=== PATIENT | male | born 1940 | race Caucasian/White ===

== ENCOUNTER 2017-10-13 12:34 | Inpatient (IN) ==
[~2017-10-13 12:34] MED LIST: ETOMIDATE 20 MG/10 ML VIAL IV ONE; PHENYLEPHRINE 1 MG/10 ML SYRINGE IV ONE; PROPOFOL 200 MG/20 ML VIAL IV ONE
[2017-10-13] MEDS ORDERED: DILTIAZEM 50 MG/10 ML VIAL IV STA ×2 (12:53→17:43)
[2017-10-13] MEDS ORDERED: DILTIAZEM 100 MG VIAL.ADD IV ONE (12:57)
[2017-10-13] MEDS ORDERED: DILTIAZEM 50 MG/10 ML VIAL IV ONE ×2 (12:58→17:41)
[2017-10-13] MEDS ORDERED: DILTIAZEM INJ 100 MG in SODIUM CHLORIDE 0.9% 100 ML IV SCH (13:00)
[2017-10-13] MEDS ORDERED: SODIUM CHLORIDE 0.9% 100 ML IV ONE (13:10)
[2017-10-13 14:04] LABS: INR 1.1; PT Patient Result 11.4 SECS; Partial Thromboplastin Time 26.1 SECS (0-40)
[2017-10-13 14:23] LABS: Alanine Aminotransferase 18 U/L (16-61); Albumin 3.6 G/DL (3.4-5.0); Alkaline Phosphatase 61 U/L (45-117); Aspartate Amino Transferase 18 U/L (0-37); Blood Urea Nitrogen 11 MG/DL (7-18); Calcium 8.8 MG/DL (8.5-10.1); Glucose 93 MG/DL (74-106); Osmolality,Calculated 273.7 MOS/KG (273-304); Sodium 138 MMOL/L (136-145); Total Protein 6.7 G/DL (6.4-8.3); Troponin I Only < 0.015 NG/ML (0.00-0.045)
[2017-10-13 14:53] LABS: Basophils # 0.1 10*3/uL (0.0-0.2); Basophils % 1.1 % (0.0-0.8); Eosinophils # 0.1 10*3/uL (0.0-0.87); Eosinophils % 1.7 % (0.00-10.9); Hematocrit 36.9 VOL% (42.0-52.0); Hemoglobin 12.8 GM/DL (14.0-18.0); Immature Granulocytes % 0.2 %; Immature Granulocytes Absolute 0.01 #; Lymphocytes # 1.2 10*3/uL (1.4-4.0); Lymphocytes % 23.3 % (21.2-54.2); Mean Corpuscular HGB Conc 34.7 GM/DL (32-36); Mean Corpuscular Hemoglobin 33 PG (27-34); Mean Corpuscular Volume 94.4 FL (87-102); Mean Platelet Volume 13.8 FL (9.6-12.0); Monocytes # 0.6 10*3/uL (0.11-0.8); Monocytes % 10.5 % (1.7-12.7); Neutrophils # 3.3 10*3/uL (1.4-7.4); Neutrophils % 63.2 % (38.7-73.9); Red Blood Count 3.91 MC/CUMM (3.8-5.5); Red Cell Distribution Width 13.3 % (9.3-17.3); White Blood Count 5.2 T/CUMM (4-12)
[2017-10-13 14:59] LABS: Platelet Count 30 T/CUMM (130-400)
[2017-10-13 15:07] LABS: Macrocytosis 2+
[2017-10-13 15:08] LABS: Platelet Estimate Decreased
[2017-10-13] MEDS ORDERED: traZODone 50 MG TABLET PO PRN (15:19)
[2017-10-13] MEDS ORDERED: ACETAMINOPHEN 325 MG TABLET PO PRN (15:19)
[2017-10-13] MEDS ORDERED: ONDANSETRON 4 MG/2 ML VIAL IV PRN (15:19)
[2017-10-13] MEDS ORDERED: ACETAMINOPHEN 325 MG TABLET ONE (16:25)
[2017-10-13] MEDS: EZETIMIBE 10 MG TABLET PO SCH (21:58)
[2017-10-13] MEDS: TAMSULOSIN 0.4 MG CAPSULE PO SCH (21:59)
[2017-10-13] MEDS: DILTIAZEM INJ 100 MG in SODIUM CHLORIDE 0.9% 100 ML IV SCH (22:11)
[2017-10-14] MEDS: DILTIAZEM INJ 100 MG in SODIUM CHLORIDE 0.9% 100 ML IV SCH ×3 (06:35→15:34)
[2017-10-14] MEDS: LEVOTHYROXINE 75 MCG TABLET PO SCH (06:35)
[2017-10-14 08:30] LABS: Basophils # 0.1 10*3/uL (0.0-0.2); Basophils % 0.9 % (0.0-0.8); Eosinophils # 0.1 10*3/uL (0.0-0.87); Eosinophils % 1.3 % (0.00-10.9); Hematocrit 35.2 VOL% (42.0-52.0); Hemoglobin 12.4 GM/DL (14.0-18.0); Immature Granulocytes % 0.4 %; Immature Granulocytes Absolute 0.02 #; Lymphocytes # 1.3 10*3/uL (1.4-4.0); Lymphocytes % 24.8 % (21.2-54.2); Mean Corpuscular HGB Conc 35.2 GM/DL (32-36); Mean Corpuscular Hemoglobin 32 PG (27-34); Mean Corpuscular Volume 91.9 FL (87-102); Mean Platelet Volume 10.1 FL (9.6-12.0); Monocytes # 0.6 10*3/uL (0.11-0.8); Monocytes % 11.5 % (1.7-12.7); Neutrophils # 3.3 10*3/uL (1.4-7.4); Neutrophils % 61.1 % (38.7-73.9); Red Blood Count 3.83 MC/CUMM (3.8-5.5); Red Cell Distribution Width 13.2 % (9.3-17.3); White Blood Count 5.4 T/CUMM (4-12)
[2017-10-14 08:32] LABS: Platelet Count 85 T/CUMM (130-400)
[2017-10-14] MEDS ORDERED: METOPROLOL SUCCINATE XL 25 MG TABLET PO SCH (09:00)
[2017-10-14] MEDS ORDERED: DILTIAZEM CD 240 MG CAPSULE PO SCH (14:00)
[2017-10-14] MEDS: CITALOPRAM 20 MG TABLET PO SCH (14:39)
[2017-10-14] MEDS: PRAVASTATIN 40 MG TABLET PO SCH (14:40)
[2017-10-14] MEDS: RIVAROXABAN 20 MG TABLET PO SCH (16:47)
[2017-10-14] MEDS: EZETIMIBE 10 MG TABLET PO SCH (21:51)
[2017-10-14] MEDS: TAMSULOSIN 0.4 MG CAPSULE PO SCH (21:52)
[2017-10-14] MEDS: ZALEPLON 5 MG CAPSULE PO PRN (21:52)
[2017-10-14] MEDS: ASPIRIN EC 81 MG TABLET PO SCH (21:53)
[2017-10-15] MEDS ORDERED: DIGOXIN 0.5 MG/2 ML AMP IV ONE ×3 (04:58→18:12)
[2017-10-15] MEDS: LEVOTHYROXINE 75 MCG TABLET PO SCH (06:48)
[2017-10-15 06:52] LABS: Basophils # 0.1 10*3/uL (0.0-0.2); Basophils % 0.8 % (0.0-0.8); Eosinophils # 0.1 10*3/uL (0.0-0.87); Eosinophils % 1.3 % (0.00-10.9); Hematocrit 34.3 VOL% (42.0-52.0); Hemoglobin 12.1 GM/DL (14.0-18.0); Immature Granulocytes % 0.3 %; Immature Granulocytes Absolute 0.02 #; Lymphocytes # 1.9 10*3/uL (1.4-4.0); Lymphocytes % 30.3 % (21.2-54.2); Mean Corpuscular HGB Conc 35.3 GM/DL (32-36); Mean Corpuscular Hemoglobin 33 PG (27-34); Mean Corpuscular Volume 92.2 FL (87-102); Mean Platelet Volume 10.3 FL (9.6-12.0); Monocytes # 0.6 10*3/uL (0.11-0.8); Monocytes % 9.3 % (1.7-12.7); Neutrophils # 3.5 10*3/uL (1.4-7.4); Red Blood Count 3.72 MC/CUMM (3.8-5.5); Red Cell Distribution Width 13.2 % (9.3-17.3); White Blood Count 6.1 T/CUMM (4-12)
[2017-10-15 06:53] LABS: Platelet Count 132 T/CUMM (130-400)
[2017-10-15] MEDS ORDERED: DIGOXIN 0.25 MG TABLET PO ONE ×2 (07:05→18:12)
[2017-10-15 07:06] LABS: Hypochromasia 1+
[2017-10-15] MEDS: SOTALOL 80 MG TABLET PO SCH ×2 (08:46→21:39)
[2017-10-15] MEDS: PRAVASTATIN 40 MG TABLET PO SCH (08:46)
[2017-10-15] MEDS: CITALOPRAM 20 MG TABLET PO SCH (08:46)
[2017-10-15] MEDS: DILTIAZEM INJ 100 MG in SODIUM CHLORIDE 0.9% 100 ML IV SCH (15:22)
[2017-10-15] MEDS: RIVAROXABAN 20 MG TABLET PO SCH (16:24)
[2017-10-15] MEDS: EZETIMIBE 10 MG TABLET PO SCH (21:39)
[2017-10-15] MEDS: ZALEPLON 5 MG CAPSULE PO PRN (21:39)
[2017-10-15] MEDS: TAMSULOSIN 0.4 MG CAPSULE PO SCH (21:39)
[2017-10-15] MEDS: ASPIRIN EC 81 MG TABLET PO SCH (21:39)
[2017-10-15] MEDS: DILTIAZEM 30 MG TABLET PO SCH (21:39)
[2017-10-16] MEDS: LEVOTHYROXINE 75 MCG TABLET PO SCH (06:36)
[2017-10-16] MEDS ORDERED: SODIUM CHLORIDE 0.9% 1,000 ML IV SCH (08:00)
[2017-10-16] MEDS: PRAVASTATIN 40 MG TABLET PO SCH (10:28)
[2017-10-16] MEDS: CITALOPRAM 20 MG TABLET PO SCH (10:28)
[2017-10-16] MEDS: SOTALOL 80 MG TABLET PO SCH (10:28)
[2017-10-16] MEDS: DILTIAZEM 30 MG TABLET PO SCH (10:29)
[2017-10-16 12:02] VITALS: BP 111/72
[2017-10-16] MEDS ORDERED: DIGOXIN 0.25 MG TABLET PO SCH (13:00)
== END 2017-10-16 12:40 | disposition home or self-care (01) | DRG 310 ==
LOC: N.ED 12:34 → N.EDINP 14:48 → SUATTDRO 14:48 → N.TELES 19:42
PROVIDERS: ADMIT Internal Medicine; ATTEND Hospitalist

== ENCOUNTER 2020-06-20 05:33 | Inpatient (IN) ==
[2020-06-14 12:17] LABS: INR 1.4
[2020-06-14 12:18] LABS: Partial Thromboplastin Time 42.8 SECS (23.9-33.8)
[2020-06-14 12:21] LABS: Albumin 3.5 G/DL (3.4-5.0); Bilirubin,Total 0.6 MG/DL (0.2-1.0); Calcium 8.8 MG/DL (8.5-10.1); Osmolality,Calculated 268.1 MOS/KG (273-304); Total Protein 7.5 G/DL (6.4-8.3)
[2020-06-14 12:31] LABS: Apearance,Urine Clear (Clear); Bilirubin,Urine Negative (Negative); Blood, Urine Negative (Negative); Glucose,Urine (UA) Negative (Negative); Ketones,Urine Negative (Negative); Nitrite,Urine Negative (Negative); Protein,Urine Negative; Urine Color Yellow (Yellow); Urine Specific Gravity 1.005 (1.001-1.035); Urine Urobilinogen < 2.0 EU/DL (0.2-1.0)
[2020-06-20] MEDS ORDERED: VANCOMYCIN 1,000 MG VIAL ONE (05:57)
[2020-06-20] MEDS ORDERED: ceFAZolin 1,000 MG VIAL ONE (05:57)
[2020-06-20] MEDS ORDERED: VANCOMYCIN INJ 1,000 MG in SODIUM CHLORIDE 0.9% 250 ML IV ONE (06:00)
[2020-06-20] MEDS ORDERED: DIAZEPAM 5 MG TABLET PO ONE (06:19)
[2020-06-20] MEDS ORDERED: FAMOTIDINE 20 MG TABLET PO ONE (06:19)
[2020-06-20] MEDS ORDERED: GABAPENTIN 400 MG CAPSULE PO ONE (06:19)
[2020-06-20] MEDS ORDERED: ACETAMINOPHEN 500 MG TABLET PO ONE (06:19)
[2020-06-20] MEDS ORDERED: BUPIVACAINE MPF 0.25% 30 ML VIAL ONE (06:25)
[2020-06-20] MEDS ORDERED: GABAPENTIN 400 MG CAPSULE ONE (06:35)
[2020-06-20] MEDS ORDERED: ACETAMINOPHEN 500 MG TABLET ONE (06:35)
[2020-06-20] MEDS ORDERED: DIAZEPAM 5 MG TABLET ONE (06:35)
[2020-06-20] MEDS ORDERED: FAMOTIDINE 20 MG TABLET ONE (06:35)
[2020-06-20 06:37] LABS: Basophils % 0.5 % (0.0-0.8); Eosinophils # 0.1 10*3/uL (0.0-0.87); Eosinophils % 1.6 % (0.00-10.9); Hematocrit 42.1 VOL% (42.0-52.0); Hemoglobin 14.1 GM/DL (14.0-18.0); Immature Granulocytes % 0.3 %; Immature Granulocytes Absolute 0.02 #; Lymphocytes # 1.1 10*3/uL (1.4-4.0); Lymphocytes % 19.1 % (21.2-54.2); Mean Corpuscular HGB Conc 33.5 GM/DL (32-36); Mean Corpuscular Volume 101.4 FL (87-102); Monocytes % 10.9 % (1.7-12.7); Neutrophils % 67.6 % (38.7-73.9); Red Blood Count 4.15 MC/CUMM (3.8-5.5); Red Cell Distribution Width 14.4 % (9.3-17.3); White Blood Count 5.8 T/CUMM (4-12)
[2020-06-20] MEDS: LACTATED RINGERS 1,000 ML IV SCH ×2 (06:38→09:34)
[2020-06-20] MEDS ORDERED: TEMAZEPAM 7.5 MG CAPSULE PO PRN (07:07)
[2020-06-20] MEDS ORDERED: PROMETHAZINE 25 MG/1 ML VIAL IM PRN (07:07)
[2020-06-20] MEDS ORDERED: diphenhydrAMINE CAP 25 MG CAPSULE PO PRN (07:07)
[2020-06-20] MEDS ORDERED: LACTULOSE 20 GM/30 ML UDCUP PO PRN (07:07)
[2020-06-20] MEDS ORDERED: MORPHINE 4 MG/1 ML VIAL IV PRN ×2 (07:07→07:20)
[2020-06-20] MEDS ORDERED: ONDANSETRON 4 MG/2 ML VIAL IV PRN (07:07)
[2020-06-20] MEDS ORDERED: MAGNESIUM HYDROXIDE SUSP 30 ML UDCUP PO PRN (07:07)
[2020-06-20] MEDS ORDERED: BISACODYL 10 MG SUPP RECTAL PRN (07:07)
[2020-06-20 07:09] LABS: Platelet Count 52 T/CUMM (130-400)
[2020-06-20] MEDS ORDERED: NITROGLYCERIN SL 0.4 MG TABLET SL PRN (07:11)
[2020-06-20] MEDS ORDERED: ACETAMINOPHEN 500 MG TABLET PO PRN (07:11)
[2020-06-20] MEDS ORDERED: SODIUM CHLORIDE 0.9% 1,000 ML IV PRN (08:44)
[2020-06-20] MEDS ORDERED: SEVOFLURANE 1 UNIT/15 MINUTE INH ONE (09:20)
[2020-06-20] MEDS ORDERED: propofoL 200 MG/20 ML VIAL IV ONE (09:20)
[2020-06-20] MEDS ORDERED: LIDOCAINE 2% 5 ML VIAL ONE (09:20)
[2020-06-20] MEDS ORDERED: GLYCOPYRROLATE 0.4 MG/2 ML VIAL ONE (09:21)
[2020-06-20] MEDS ORDERED: ONDANSETRON 4 MG/2 ML VIAL ONE (09:21)
[2020-06-20] MEDS ORDERED: fentaNYL 100 MCG/2 ML VIAL ONE (09:21)
[2020-06-20] MEDS ORDERED: TRANEXAMIC ACID 1,000 MG/10 ML VIAL ONE (09:21)
[2020-06-20] MEDS ORDERED: MIDAZOLAM 2 MG/2 ML VIAL ONE (09:21)
[2020-06-20] MEDS ORDERED: ePHEDrine 50 MG/ML VIAL ONE (09:21)
[2020-06-20] MEDS ORDERED: PHENYLEPHRINE 1 MG/10 ML SYRINGE IV ONE (09:22)
[2020-06-20] MEDS ORDERED: HYDROCORTISONE 100 MG VIAL ONE (09:22)
[2020-06-20] MEDS ORDERED: SODIUM CHLORIDE 0.9% 100 ML IV ONE (09:22)
[2020-06-20] MEDS ORDERED: NEOSTIGMINE 10 MG/10 ML VIAL ONE (09:22)
[2020-06-20] MEDS ORDERED: ROCURONIUM 100 MG/10 ML VIAL IV ONE (09:22)
[2020-06-20] MEDS ORDERED: SUCCINYLCHOLINE 200 MG/10 ML VIAL ONE (09:22)
[2020-06-20] MEDS ORDERED: SODIUM CHLORIDE 0.9% 1,000 ML IV ONE (09:22)
[2020-06-20 09:24] LABS: Apearance,Urine CLEAR (Clear); Bacteria,Urine Occasional /HPF (Few); Bilirubin,Urine Negative (Negative); Blood, Urine Negative (Negative); Glucose,Urine (UA) Negative (Negative); Ketones,Urine Negative (Negative); Mucus,Urine Occasional /LPF (Occasional); Nitrite,Urine Negative (Negative); Protein,Urine Negative; RBC,Urine 4 /HPF (0-4); Urine Color Yellow (Yellow); Urine Specific Gravity 1.009 (1.001-1.035); Urine Urobilinogen < 2.0 EU/DL (0.2-1.0); WBC,Urine <1 /HPF (0-6)
[2020-06-20] MEDS ORDERED: diphenhydrAMINE 50 MG/1 ML VIAL ONE (09:27)
[2020-06-20] MEDS: MULTIVITAMIN (CENTRUM) TABLET PO SCH (11:23)
[2020-06-20] MEDS: predniSONE 5 MG TABLET PO SCH (11:24)
[2020-06-20] MEDS: AMIODARONE 200 MG TABLET PO SCH (11:24)
[2020-06-20] MEDS: CITALOPRAM 20 MG TABLET PO SCH (11:24)
[2020-06-20] MEDS: DOCUSATE SODIUM 100 MG CAPSULE PO SCH ×2 (11:24→20:37)
[2020-06-20] MEDS: METOPROLOL SUCCINATE XL 25 MG TABLET PO SCH (11:24)
[2020-06-20] MEDS: SIMVASTATIN 40 MG TABLET PO SCH (11:24)
[2020-06-20] MEDS: ceFAZolin 2,000 MG in PREMIX 1 EACH IV SCH ×2 (15:48→23:52)
[2020-06-20] MEDS: RIVAROXABAN 20 MG TABLET PO SCH (16:54)
[2020-06-20] MEDS: EZETIMIBE 10 MG TABLET PO SCH (20:37)
[2020-06-20] MEDS ORDERED: TAMSULOSIN 0.4 MG CAPSULE PO SCH (21:00)
[2020-06-21] MEDS: ceFAZolin 2,000 MG in PREMIX 1 EACH IV SCH ×2 (00:15→09:31)
[2020-06-21] MEDS: LEVOTHYROXINE 75 MCG TABLET PO SCH (06:14)
[2020-06-21 06:17] LABS: Calcium 8.3 MG/DL (8.5-10.1); Osmolality,Calculated 265.4 MOS/KG (273-304)
[2020-06-21 07:53] LABS: Basophils % 0.4 % (0.0-0.8); Eosinophils # 0.1 10*3/uL (0.0-0.87); Eosinophils % 0.6 % (0.00-10.9); Hematocrit 36.5 VOL% (42.0-52.0); Hemoglobin 12.7 GM/DL (14.0-18.0); Immature Granulocytes % 0.4 %; Immature Granulocytes Absolute 0.03 #; Lymphocytes # 1.2 10*3/uL (1.4-4.0); Lymphocytes % 14.7 % (21.2-54.2); Mean Corpuscular HGB Conc 34.8 GM/DL (32-36); Mean Corpuscular Volume 98.4 FL (87-102); Mean Platelet Volume 11.2 FL (9.6-12.0); Monocytes % 10.8 % (1.7-12.7); Neutrophils % 73.1 % (38.7-73.9); Red Blood Count 3.71 MC/CUMM (3.8-5.5); Red Cell Distribution Width 14.2 % (9.3-17.3); White Blood Count 8.4 T/CUMM (4-12)
[2020-06-21 07:55] LABS: Platelet Count 52 T/CUMM (130-400)
[2020-06-21 08:02] LABS: Hypochromasia 1+
[2020-06-21 08:03] LABS: Macrocytosis Slight
[2020-06-21] MEDS: MULTIVITAMIN (CENTRUM) TABLET PO SCH (09:30)
[2020-06-21] MEDS: METOPROLOL SUCCINATE XL 25 MG TABLET PO SCH (09:30)
[2020-06-21] MEDS: AMIODARONE 200 MG TABLET PO SCH (09:31)
[2020-06-21] MEDS: predniSONE 5 MG TABLET PO SCH (09:31)
[2020-06-21] MEDS: DOCUSATE SODIUM 100 MG CAPSULE PO SCH ×2 (09:31→22:18)
[2020-06-21] MEDS: SIMVASTATIN 40 MG TABLET PO SCH (09:31)
[2020-06-21] MEDS: CITALOPRAM 20 MG TABLET PO SCH (09:31)
[2020-06-21 11:34] LABS: Apearance,Urine CLEAR (Clear); Bilirubin,Urine Negative (Negative); Blood, Urine Large mg/dL (Negative); Glucose,Urine (UA) Negative (Negative); Hyaline Casts,Urine 4 /LPF (0-3); Ketones,Urine Negative (Negative); Mucus,Urine Occasional /LPF (Occasional); Nitrite,Urine Negative (Negative); Protein,Urine 100 MG/DL; RBC,Urine 514 /HPF (0-4); Urine Color Amber (Yellow); Urine Specific Gravity 1.021 (1.001-1.035); Urine Urobilinogen < 2.0 EU/DL (0.2-1.0); WBC,Urine 23 /HPF (0-6)
[2020-06-21] MEDS: RIVAROXABAN 20 MG TABLET PO SCH (16:40)
[2020-06-21] MEDS: TAMSULOSIN 0.4 MG CAPSULE PO SCH ×2 (16:40→22:18)
[2020-06-21] MEDS: EZETIMIBE 10 MG TABLET PO SCH (22:18)
[2020-06-22 06:17] LABS: Basophils % 0.2 % (0.0-0.8); Eosinophils % 0.4 % (0.00-10.9); Hematocrit 32.5 VOL% (42.0-52.0); Hemoglobin 11.7 GM/DL (14.0-18.0); Immature Granulocytes % 0.4 %; Immature Granulocytes Absolute 0.03 #; Lymphocytes # 0.7 10*3/uL (1.4-4.0); Lymphocytes % 8.7 % (21.2-54.2); Mean Corpuscular Volume 96.2 FL (87-102); Mean Platelet Volume 10.8 FL (9.6-12.0); Neutrophils % 77.3 % (38.7-73.9); Red Blood Count 3.38 MC/CUMM (3.8-5.5); Red Cell Distribution Width 13.6 % (9.3-17.3); White Blood Count 8.1 T/CUMM (4-12)
[2020-06-22 06:22] LABS: Platelet Count 65 T/CUMM (130-400)
[2020-06-22] MEDS: LEVOTHYROXINE 75 MCG TABLET PO SCH (07:48)
[2020-06-22] MEDS: SIMVASTATIN 40 MG TABLET PO SCH (08:41)
[2020-06-22] MEDS: MULTIVITAMIN (CENTRUM) TABLET PO SCH (08:41)
[2020-06-22] MEDS: CITALOPRAM 20 MG TABLET PO SCH (08:41)
[2020-06-22] MEDS: METOPROLOL SUCCINATE XL 25 MG TABLET PO SCH (08:41)
[2020-06-22] MEDS: AMIODARONE 200 MG TABLET PO SCH (08:41)
[2020-06-22] MEDS: TAMSULOSIN 0.4 MG CAPSULE PO SCH (08:41)
[2020-06-22] MEDS: DOCUSATE SODIUM 100 MG CAPSULE PO SCH (08:41)
[2020-06-22] MEDS: predniSONE 5 MG TABLET PO SCH (08:41)
[2020-06-22 12:03] VITALS: BP 113/62
[2020-07-10] MEDS ORDERED: CYANOCOBALAMIN 1000 MCG/1 ML VIAL IM SCH (09:00)
== END 2020-06-22 12:25 | DRG 470 ==
LOC: N.SDSINP 05:33 → N.4E 10:01
PROVIDERS: ADMIT Orthopaedic Surgery; ATTEND Orthopaedic Surgery